=== PATIENT | male | born 1985 | race Two or more races ===

== ENCOUNTER 2017-10-16 11:38 | Emergency (ER) | payer OTHER ==
[~2017-10-16] VITALS: Ht 175.3 cm; Wt 72.6 kg
== END 2017-10-16 13:53 | disposition home or self-care (01) ==
LOC: ER 11:38
DX: J02.9 Acute pharyngitis, unspecified (principal); B34.9 Viral infection, unspecified

== ENCOUNTER 2022-11-03 15:23 | Outpatient (CLI) | payer OTHER | END 2022-11-03 15:34 | disposition home or self-care (01) | LOC: LAB 15:23 | DX: Z20.828 Contact with and (suspected) exposure to other viral communicable diseases (principal); Z20.818 Contact with and (suspected) exposure to other bacterial communicable diseases ==

== ENCOUNTER 2024-11-13 10:04 | Emergency (ER) | payer OTHER ==
[~2024-11-13] VITALS: Ht 172.7 cm; Wt 74.8 kg
[2024-11-13] MEDS ORDERED: ORPHENADRINE CITRATE 30 MG/ML AMPUL IM STA (12:11)
[2024-11-13] MEDS ORDERED: KETOROLAC TROMETHAMINE 60 MG VIAL IM STA (12:11)
== END 2024-11-13 14:11 | disposition home or self-care (01) ==
LOC: ER 10:07
DX: M54.50 Low back pain, unspecified (principal); Z88.8 Allergy status to other drugs, medicaments and biological substances